=== PATIENT | male | born 1990 | race Caucasian/White ===

== ENCOUNTER 2022-03-02 09:52 | Emergency (ER) | payer OTHER ==
[~2022-03-02] VITALS: Ht 175.3 cm; Wt 90.7 kg
[2022-03-02 09:57] VITALS: BP 170/110
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
--- NOTE | 2022-03-02 10:06 | NUR ---
Patient being evaluated by DR SHEEHAN at [facility].
--- NOTE | 2022-03-02 10:09 | NUR ---
BP 170/110. MD MADE AWARE. PT DENIES CORTES OR DIZZINESS AT THIS TIME.
[2022-03-02] MEDS ORDERED: BACITRACIN OINT 500 UNITS/GM PKT TP ONE (10:13)
[2022-03-02 10:30] VITALS: BP 156/99
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
== END 2022-03-02 10:30 ==
LOC: MED 09:52
DX: S00.01XA Abrasion of scalp, initial encounter (principal); V49.88XA Car occupant (driver) (passenger) injured in other specified transport accidents, initial encounter; Y93.89 Activity, other specified; Y92.89 Other specified places as the place of occurrence of the external cause; Y99.8 Other external cause status
CPT/HCPCS: 99283